=== PATIENT | female | born 1970 | race Caucasian/White ===

== ENCOUNTER 2017-10-05 14:55 | Emergency (ER) | payer BC ==
[2017-10-05 15:16] VITALS: BP 129/72
--- NOTE | 2017-10-05 15:57 | RAD ---
HISTORY: Chest congestion COMPARISONS: January 05, 2012 VIEWS: 4: Frontal dual-energy and lateral views of the chest. FINDINGS: CARDIOMEDIASTINAL SILHOUETTE: The cardiomediastinal silhouette is normal. GRZEGORZ: The grzegorz are normal. PLEURA: The costophrenic angles are sharp. No pleural abnormalities are noted. LUNG PARENCHYMA: The lungs are clear. ABDOMEN: The upper abdomen is clear. There is no subphrenic gas. BONES AND SOFT TISSUES: Degenerative changes are noted of the spine OTHER: None. IMPRESSION: NO ACTIVE CARDIOPULMONARY DISEASE.
--- NOTE | 2017-10-05 16:47 | UC ---
Respiratory Complaint HPI - HPI Summary HPI Summary: Patient is a 47-year-old female presenting to the with chief complaint of "I feel like I have pneumonia." She states she feels very heavy and her chest, constantly coughing and is unable to bring anything up with the cough. Endorses green and yellow discharge 2, but thinks it may be too thick to be coughed out. Denies any fevers, sweats, chills. She also endorses stating "I had the flu last week," but was never tested. She states she had diffuse body aches and was feeling warm at that time. She took 1 Advil and started to feel better. She called the ED who told her not to come in as it had already been 48 hours of present symptoms. She endorses one episode of pneumonia years ago and states this feels similar. She does not feel more short of breath or fatigued than usual. History of asthma at baseline. She states she has not needed the use of her inhaler more frequently lately. - History of Current Complaint Chief Complaint: UCRespiratory Stated Complaint: CHEST CONGESTION Time Seen by Provider: 10/05/17 15:21 Hx Obtained From: Patient ?: No Onset/Duration: Sudden Onset Timing: Constant Severity Initially: Mild Severity Currently: Mild Pain Intensity: 0 Pain Scale Used: 0-10 Numeric Character: Cough: Nonproductive Aggravating Factors: Nothing Alleviating Factors: Nothing Associated Signs And Symptoms: Positive: URI, Nasal Congestion - Risk Factors Pulmonary Embolism Risk Factors: Negative Cardiac Risk Factors: Negative Pseudomonas Risk Factors: Negative Tuberculosis Risk Factors: Negative - Allergies/Home Medications Allergies/Adverse Reactions: Allergies Allergy/AdvReac Type Severity Reaction Status Date / Time Iodinated Contrast- Oral and Allergy Hives Verified 10/05/17 15:22 IV Dye Penicillins Allergy Hives Verified 10/05/17 15:22 PMH/Surg Hx/FS Hx/Imm Hx Previously Healthy: Yes - Surgical History Surgical History: Yes Surgery Procedure, Year, and Place: hysterectomy r/t tumor removal, GASTRIC BYPASS X10YRS AGO, LT ANKLE FX, RT KNEE X2, L/R SKIN GRAFT, BILATERAL CARPAL TUNNEL, CHOLECYSTECTOMY, UMBILICAL HERNIA X 7, TUBLA LIGATION - Family History Known Family History: Positive: Unknown - Social History Occupation: Employed Full-time Lives: With Family Alcohol Use: None Substance Use Type: None Smoking Status (MU): Former Smoker Review of Systems Constitutional: Negative Skin: Negative ENT: Sinus Congestion, Sinus Pain/Tenderness Respiratory: Cough Cardiovascular: Negative Motor: Negative Neurovascular: Negative Neurological: Negative Psychological: Negative Is Patient Immunocompromised?: No All Other Systems Reviewed And Are Negative: Yes Physical Exam Triage Information Reviewed: Yes Appearance: Well-Appearing, Well-Nourished Vital Signs: Initial Vital Signs Temp 97.8 F 10/05/17 15:08 Pulse 75 10/05/17 15:08 Resp 18 10/05/17 15:08 BP 129/72 10/05/17 15:08 Pulse Ox 98 10/05/17 15:08 Vital Signs Reviewed: Yes Eye Exam: Normal Eyes: Positive: Conjunctiva Clear Neck exam: Normal Neck: Positive: Supple, No Lymphadenopathy Respiratory Exam: Normal Respiratory: Positive: Wheezing Cardiovascular Exam: Normal Cardiovascular: Positive: RRR Musculoskeletal Exam: Normal Musculoskeletal: Positive: Strength Intact Neurological Exam: Normal Neurological: Positive: Alert Psychological: Positive: Normal Response To Family Skin Exam: Normal UC Diagnostic Evaluation - Laboratory O2 Sat by Pulse Oximetry: 98 Respiratory Course/Dx - Course Course Of Treatment: During the course of treatment, the patient is evaluated for chest pressure with mild cough without the ability to bring any mucus up 4 days. She states she has had a history of pneumonia and states this feels similar. Denies any recent fevers, sweats, chills, however she endorses flulike symptoms last week but was never tested. No pain to palpation of the maxillary sinuses, slight wheezing in the bilateral lung bases, without rhonchi. X-ray ordered. I have also offered a cough suppressant while in the UC and she declines. While awaiting the results of the chest x-ray, patient eloped. - Differential Dx/Diagnosis Provider Diagnoses: Patient eloped Discharge - Sign-Out/Discharge Documenting (check all that apply): Discharge - Discharge Plan Condition: Stable Disposition: ELOPEMENT Referrals: Justin MCKEON,Naun Vaughan [Primary Care Provider] - - Billing Disposition and Condition Condition: STABLE Disposition: ELOP
== END 2017-10-05 16:11 | disposition left against medical advice (07) ==
LOC: UCEAST 14:55
DX: R05 Cough (principal); R09.89 Other specified symptoms and signs involving the circulatory and respiratory systems; R09.81 Nasal congestion; Z88.0 Allergy status to penicillin; Z91.041 Radiographic dye allergy status; Z87.891 Personal history of nicotine dependence
CPT/HCPCS: 71046; 99212; G0463

== ENCOUNTER 2018-11-03 12:02 | Emergency (ER) | payer BC, MEDICAID ==
[2018-11-03] MEDS ORDERED: NS 0.9% 1000 ML** 2,000 ML IV ONE (12:36)
--- NOTE | 2018-11-03 12:37 | ED ---
HPI Chest Pain - HPI Summary HPI Summary: This patient is a 48 year old female presenting to [facility] with a chief complaint of chest tightness since last night. One week ago she noticed green drainage in her eyes bilaterally. She reports neck pain, chills, diaphoresis, photophobia throat tightness and nasal congestion with green mucous. She states that she has been around family members that have had the flu and strep throat. Patient is wearing sunglasses because the light bothers her. The patient has a Hx of asthma but denies dyspnea or wheezing now. The patient used clear eye drops last night. The patient states she lost her voice for three days in the last week but it has returned now. Vital signs in the room at 1236 are BP of 113/70 , HR of 91 BPM and an O2 Sat of 99%. Pt states she took a cetirizine last pm for allergy symptoms but normally does not take medications. NK [No Home Medications Reported] 02/28/13 [History Confirmed 10/05/17] - History of Current Complaint Chief Complaint: EDGeneral Hx Obtained From: Patient Onset/Duration: Started Days Ago, Started Weeks Ago, Still Present Initial Severity: Mild Current Severity: None Pain Intensity: 0 Pain Scale Used: 0-10 Numeric Chest Pain Radiates: Yes Chest Pain Radiates To:: Neck Character: Heaviness Associated Signs and Symptoms: Positive: Chest Pain, Chills, Diaphoresis, Nasal Congestion. Negative: Shortness of Breath - Allergy/Home Medications Allergies/Adverse Reactions: Allergies Allergy/AdvReac Type Severity Reaction Status Date / Time Iodinated Contrast- Oral and Allergy Hives Verified 11/03/18 12:10 IV Dye Penicillins Allergy Hives Verified 11/03/18 12:10 PMH/Surg Hx/FS Hx/Imm Hx Endocrine/Hematology History: Denies: Hx Diabetes, Hx Systemic Lupus Erythematosus, Hx Thyroid Disease Cardiovascular History: Denies: Hx Congestive Heart Failure, Hx Hypertension Respiratory History: Reports: Hx Asthma Denies: Hx Chronic Obstructive Pulmonary Disease (COPD), Other Respiratory Problems/Disorders GI History: Denies: Hx Ulcer History: Denies: Hx Dialysis, Hx Renal Disease Musculoskeletal History: Reports: Hx Osteoporosis EENT History: 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 - Surgical History Surgery Procedure, Year, and Place: hysterectomy r/t tumor removal, GASTRIC BYPASS X10YRS AGO, LT ANKLE FX, RT KNEE X2, L/R SKIN GRAFT, BILATERAL CARPAL TUNNEL, CHOLECYSTECTOMY, UMBILICAL HERNIA X 7, TUBLA LIGATION Infectious Disease History: No Infectious Disease History: Denies: Hx Clostridium Difficile, Hx Hepatitis, Hx Human Immunodeficiency Virus (HIV), Hx of Known/Suspected MRSA, Traveled Outside the [place] in Last 30 Days - Family History Known Family History: Positive: Cardiac Disease, Diabetes, Renal Disease - Social History Alcohol Use: None Substance Use Type: Reports: None Hx Tobacco Use: No Smoking Status (MU): Former Smoker Review of Systems Positive: Chills, Skin Diaphoresis Positive: Photophobia, Drainage Positive: Sore Throat, Nasal Discharge Positive: Chest Pain Negative: Shortness Of Breath Positive: Other - Neck pain All Other Systems Reviewed And Are Negative: Yes Physical Exam - Summary Physical Exam Summary: Appearance: well-appearing, moderate pain distress, well-nourished, wearing sunglasses Skin: Warm, color reflects adequate perfusion, dry Head: Normal Head/Face inspection, atraumatic Eyes: Conjunctiva red, injected, exudate in left eye, photophobic ENT: Normal inspection Neck: Supple, no nodes, no JVD Respiratory: Lungs clear, normal breath sounds, no respiratory distress, no wheezing Cardio: RRR, No murmur, pulses normal, brisk capillary refill Abdomen: Soft, nontender Bowel sounds: Present Musculoskeletal: Strength Intact/ROM intact, no calf tenderness, no edema. Psychological: Normal Neuro: Alert, muscle tone normal, no focal deficit Triage Information Reviewed: Yes Vital Signs On Initial Exam: Initial Vitals Temp Pulse Resp BP Pulse Ox 99.3 F 81 16 118/67 99 11/03/18 12:05 11/03/18 12:05 11/03/18 12:05 11/03/18 12:05 11/03/18 12:05 Vital Signs Reviewed: Yes Diagnostics - Vital Signs Vital Signs Temp Pulse Resp BP Pulse Ox 11/03/18 12:05 99.3 F 81 16 118/67 99 - Laboratory Result Diagrams: 11/03/18 12:54 11/03/18 12:54 Lab Statement: Any lab studies that have been ordered have been reviewed, and results considered in the medical decision making process. - Radiology CXR Radiology Interpretation Completed By: Radiologist Summary of Radiographic Findings: Reveals no evidence for acute disease. ED Provider has reviewed this report. - EKG 1314 Cardiac Rate: NL - 60 BPM EKG Rhythm: Sinus Rhythm ST Segment: Non-Specific Ectopy: None EKG Comparison: No Significant Change - 10/27/07 Summary of EKG Findings: An EKG at 1314 reveals nml AV/IV CT, nml QTc, and nml axis. No acute changes. Re-Evaluation - Re-Evaluation First Eval Re-Evaluation Time: 14:00 Change: Improved Comment: Vision improved but still photophobic. Still with chest pressure 3-4. Discussed dye allergy. States she is not sure if it was IV or oral. It was "a long time ago". States she had "two hives", "one on each cheek", no SOB, no throat tightening, no total body urticaria. Will order tobramycin eye drops for possible bacterial conjunctivitis Second Eval Re-Evaluation Time: 17:00 Change: Improved Comment: Chest pain is better, eyes are better, agrees to discharge plan, agrees to take antihistamines. BP was 116/72, Heart Rate of 55, spO2 of 98%. Chest Pain Course/Dx - Course Course Of Treatment: This patient is a 48 year old female presenting to [facility] with a chief complaint of chest tightness since last night. Labs reveal Hgb 11.3 L, MPV 7.3 L, D-Dimer 328 H, Glucose 106 H, Alkaline Phosphatase 108 H. An EKG at 1314 reveals nml AV/IV CT, nml QTc, and nml axis. No acute changes. CXR reveals no evidence for acute disease. A plan for discharge was discussed with the patient and she was agreeable with this plan. Considered pt's d-dimer which is mildly elevated. Pt deemed to be low risk by [facility]. Did take a trip to [place] yest, but got out and walked around mid-trip. No leg pain. No SOB. No tachypnea, no tachycardia. Possible allergy to IV contrast. Will treat pt's chest pressure as allergic related as the rest of her constellation of symptoms fits allergies. Will defer CTA at this point. Serology reveals Influenza A- Negative, Influenza B-Negative, Strep A- Negative. A plan for discharge was discussed with the patient and she was agreeable with this plan. - Chest Pain Differential Diagnosis/HQI/PQRI: Acute DC, ACS, Chest Wall, GI Disease, Lower Respiratory Infection, Pulmonary Embolism - Diagnoses Provider Diagnoses: Chest tightness or pressure, Conjunctivitis Discharge - Sign-Out/Discharge Documenting (check all that apply): Patient Departure - Discharge Patient Received Moderate/Deep Sedation with Procedure: No - Discharge Plan Condition: Stable Disposition: HOME Patient Education Materials: Chest Pain (ED) Referrals: Justin MCKEON,Naun Vaughan [Primary Care Provider] - - Attestation Statements Document Initiated by Scribe: Yes Documenting Scribe: Jakub Jerez Provider For Whom Jennifere is Documenting (Include Credential): Corazon Iglesias Scribe Attestation: Jakub Samuels, scribed for Corazon Iglesias on 11/03/18 at 1854. Status of Scribe Document: Ready
[2018-11-03 13:01] LABS: ABS Basophils 0.1 10^3/ul (0-0.2); ABS Eosinophils 0.2 10^3/ul (0-0.6); ABS Lymphocytes 1.6 10^3/ul (1.0-4.8); ABS Monocytes 0.6 10^3/ul (0-0.8); ABS Neutrophils 4.1 10^3/ul (1.5-7.7); Eosinophil % 3.4 %; Hematocrit 35 % (35-47); Hemoglobin 11.3 g/dL (12.0-16.0); Lymphocyte % 24.4 %; Mean Corpuscular HGB Conc 32 g/dL (31-36); Mean Corpuscular Hemoglobin 27 pg (27-31); Mean Corpuscular Volume 82 fL (80-97); Mean Platelet Volume 7.3 fL (7.4-10.4); Platelet Count 352 10^3/uL (150-450); Red Blood Count 4.27 10^6 /uL (3.70-4.87); Red Cell Distribution Width 15 % (10.5-15); White Blood Count 6.6 10^3/uL (3.5-10.8)
[2018-11-03 13:08] LABS: Activated Partial Thrombo Time 32.7 seconds (26.0-36.3); INR 1.03 (0.82-1.09)
[2018-11-03 13:19] LABS: Albumin/Globulin Ratio 1.1 (1-3); BUN/Creatinine Ratio 17.6 (8-20); Calcium 9.4 mg/dL (8.6-10.3); EGFR African American 100.5 (>60); EGFR Non-African American 83.1 (>60); Globulin 3.6 g/dL (2-4); Magnesium 2.1 mg/dL (1.9-2.7); Potassium 3.5 mmol/L (3.5-5.0); Total Bilirubin 0.6 mg/dL (0.2-1.0); Total Protein 7.6 g/dL (6.4-8.9)
[2018-11-03 13:21] LABS: Troponin I 0.01 ng/mL (<0.04)
[2018-11-03 13:23] LABS: CKMB ng/mL 1.1 ng/mL (0.6-6.3)
[2018-11-03] MEDS ORDERED: diPHENhydraMINE IV* 50 MG/ML 1 ml VIAL (BENADRYL) IV ONE (14:02)
[2018-11-03] MEDS ORDERED: methylPREDNISolone 125 MG* 2 ML VIAL IV ONE (14:02)
[2018-11-03] MEDS ORDERED: Tobramycin 0.3% OPHTH.SOL* 5 ML BOT (regular eye drops) BOTH EYES ONE (14:12)
[2018-11-03 14:14] LABS: TSH (Thyroid Stimulating Horm) 3.52 mcIU/mL (0.34-5.60)
[2018-11-03 14:53] LABS: Urine Appearance Clear; Urine Bilirubin Negative (Negative); Urine Blood Negative (Negative); Urine Color Straw; Urine Glucose Negative (Negative); Urine Ketones Negative (Negative); Urine Nitrite Negative (Negative); Urine Protein Negative (Negative); Urine Specific Gravity 1.004 (1.010-1.030); Urine Urobilinogen Negative (Negative)
[2018-11-03 15:06] LABS: Influenza A Molecular NEGATIVE (Negative); Influenza B Molecular NEGATIVE (Negative)
[2018-11-03 17:28] VITALS: BP 124/74
[2018-11-05 07:56] LABS: Rapid Strep Molecular Negative (Negative)
== END 2018-11-03 16:56 | disposition home or self-care (01) ==
LOC: ED 12:02
DX: R07.9 Chest pain, unspecified (principal); H10.9 Unspecified conjunctivitis; M81.0 Age-related osteoporosis without current pathological fracture; R06.02 Shortness of breath; Z88.0 Allergy status to penicillin; Z91.041 Radiographic dye allergy status; Z98.84 Bariatric surgery status; Z87.891 Personal history of nicotine dependence
CPT/HCPCS: 36415; 71045; 80053; 81003; 82550; 82553; 83605; 83735; 83880; 84443; 84484; 85025; 85379; 85610; 85730; 87651; 93005; 96374; 96375; 99283; A9270-GY; J1200; J2930

== ENCOUNTER 2018-12-24 10:00 | Emergency (ER) | payer SELFPAY ==
[2018-12-24] MEDS ORDERED: Ibuprofen TAB* 800 MG PO ONE (13:21)
--- NOTE | 2018-12-24 13:22 | ED ---
Back Pain - HPI Summary HPI Summary: Pt. is a 48 y.o female who presents to the ER for diffuse back pain x 2-3 days. Pt. states she has a hx of back pain from remote injuries. No surgeries. Pt. does not recall any injuries of falls but states she did lift a case of water recently. Pt. states pain is diffuse through spine and goes into bilateral legs. She denies leg numbness, tingling or weakness. Denies bowel or bladder incontinence or retention. Pt. also notes chills today and has low grade fever in ED. Pt. denies past medical hx. Denies IV drug use. Denies cough, cp, sob, abd. pain, V/D, urinary sxs, rash. Sxs are moderate in severity. Movement makes sxs worse. Nothing makes sxs better. Pt. has not taken any OTC analgesics. - History of Current Complaint Chief Complaint: EDBackInjuryPain Stated Complaint: PARALYSIS SYMPTOMS PER PT Time Seen by Provider: 12/24/18 13:09 Hx Obtained From: Patient Pain Intensity: 10 - Allergies/Home Medications Allergies/Adverse Reactions: Allergies Allergy/AdvReac Type Severity Reaction Status Date / Time Penicillins Allergy Unknown Verified 12/24/18 10:08 Reaction Details PMH/Surg Hx/FS Hx/Imm Hx Previously Healthy: Yes Respiratory History: Reports: Hx Asthma Infectious Disease History: No Infectious Disease History: Denies: Traveled Outside the [place] in Last 30 Days - Family History Known Family History: Positive: Non-Contributory - Social History Occupation: Unemployed Lives: Alone Alcohol Use: None Substance Use Type: Reports: None Smoking Status (MU): Never Smoked Tobacco Review of Systems Positive: Fever, Chills Eyes: Negative ENT: Negative Cardiovascular: Negative Negative: Palpitations, Chest Pain Respiratory: Negative Negative: Shortness Of Breath, Cough Gastrointestinal: Negative Negative: Abdominal Pain, Vomiting, Diarrhea Genitourinary: Negative Negative: dysuria Positive: Other - diffuse back pain Skin: Negative Negative: Rash Neurological: Negative Positive: Headache. Negative: Weakness, Paresthesia, Numbness, Syncope All Other Systems Reviewed And Are Negative: Yes Physical Exam Triage Information Reviewed: Yes Vital Signs On Initial Exam: Initial Vitals Temp Pulse Resp BP Pulse Ox 100.0 F 103 16 143/80 96 12/24/18 10:05 12/24/18 10:05 12/24/18 10:05 12/24/18 10:05 12/24/18 10:05 Vital Signs Reviewed: Yes Appearance: Positive: Pain Distress - Pt. lying in room with lights off. Appears uncomfortable but nontoxic. Skin: Positive: Warm, Dry Head/Face: Positive: Normal Head/Face Inspection Eyes: Positive: Normal, EOMI Neck: Positive: Supple. Negative: Nuchal Rigidity Respiratory/Lung Sounds: Positive: Clear to Auscultation, Breath Sounds Present Cardiovascular: Positive: Normal, RRR Abdomen Description: Positive: Other: - Abd. is soft with mild tenderness to suprapubic pain which pt. states his chronic. Musculoskeletal: Positive: Normal, Strength/ROM Intact, Other - 5/5 strength in bilateral LEs. Diffuse midline spinal tenderness. No CVA tenderness. Neurological: Positive: Normal, CN Intact II-III Psychiatric: Positive: Affect/Mood Appropriate Diagnostics - Vital Signs Vital Signs Temp Pulse Resp BP Pulse Ox 12/24/18 10:05 100.0 F 103 16 143/80 96 - Laboratory Result Diagrams: 12/24/18 13:28 12/24/18 13:28 Lab Statement: Any lab studies that have been ordered have been reviewed, and results considered in the medical decision making process. Back Pain Course/Dx - Course Course Of Treatment: Pt. presenting for diffuse back pain. She also notes chills and has a low grade fever in the ED and is mildly tachycardic. Pt. has no neuro deficits and no evidence of cauda equina syndrome. Discussed pain control options and states she only wants ibuprofen, 800mg ordered. Will check labs and u/a. Pt. agreeable with plan. Labs are unremarkable other than minimally elevated CRP, alk phose, bilirubin, AST. Pending U/A. 1512: Pt.'s nurse states that pt. is upset that we are not doing anything for her. Pt. states she would like tylenol. Pt. now up out of bed and walking without difficulty. Pt. requesting to leave ER. I spoke with pt. and she asked me to leave room so she could change and leave. Pt. ambulating without difficulty. Attempted to discuss labs but was dismissed from room. Pt. leaving AMA. - Diagnoses Differential Diagnosis/HQI/PQRI: Positive: Arthritis, Epidural Abscess, Herniated Disc, Osteomyelitis, Renal Colic, Strain, Sprain Provider Diagnoses: Back pain, Fever Discharge - Sign-Out/Discharge Documenting (check all that apply): Patient Departure Patient Received Moderate/Deep Sedation with Procedure: No - Discharge Plan Condition: Good Disposition: AGAINST MEDICAL ADVICE Referrals: Justin MCKEON,Naun Vaughan [Primary Care Provider] - - Billing Disposition and Condition Condition: GOOD Disposition: Against Medical Advice
[2018-12-24 13:49] LABS: ABS Lymphocytes 0.3 10^3/ul (1.0-4.8); ABS Monocytes 0.5 10^3/ul (0-0.8); ABS Neutrophils 3.9 10^3/ul (1.5-7.7); Eosinophil % 0.2 %; Hematocrit 36 % (35-47); Hemoglobin 11.9 g/dL (12.0-16.0); Lymphocyte % 7.4 %; Mean Corpuscular HGB Conc 33 g/dL (31-36); Mean Corpuscular Hemoglobin 27 pg (27-31); Mean Corpuscular Volume 81 fL (80-97); Mean Platelet Volume 7.8 fL (7.4-10.4); Platelet Count 265 10^3/uL (150-450); Red Blood Count 4.44 10^6 /uL (3.70-4.87); Red Cell Distribution Width 15 % (10-15); White Blood Count 4.7 10^3/uL (3.5-10.8)
[2018-12-24 14:04] LABS: Albumin 3.9 g/dL (3.2-5.2); Albumin/Globulin Ratio 1.1 (1-3); BUN/Creatinine Ratio 14.5 (8-20); C Reactive Protein 32.61 mg/L (<8.01); Calcium 9.3 mg/dL (8.6-10.3); EGFR Non-African American 90.1 (>60); Globulin 3.4 g/dL (2-4); Potassium 3.7 mmol/L (3.5-5.0); Total Bilirubin 1.3 mg/dL (0.2-1.0); Total Protein 7.3 g/dL (6.4-8.9)
[2018-12-24 14:17] VITALS: BP 131/86
[2018-12-24] MEDS ORDERED: Acetaminophen TAB* 325 MG PO ONE (15:06)
[2018-12-24 15:34] LABS: Urine Appearance Clear; Urine Bilirubin Negative (Negative); Urine Blood Negative (Negative); Urine Color Straw; Urine Glucose Negative (Negative); Urine Ketones 1+ (Negative); Urine Nitrite Negative (Negative); Urine Protein Negative (Negative); Urine Specific Gravity 1.006 (1.010-1.030); Urine Urobilinogen Negative (Negative)
== END 2018-12-24 15:56 | disposition left against medical advice (07) ==
LOC: MERGE 10:00 → ED 10:00
DX: M54.9 Dorsalgia, unspecified (principal); R50.9 Fever, unspecified; Z88.0 Allergy status to penicillin; R51 Headache
CPT/HCPCS: 36415; 80053; 81003; 85025; 86140; 87476; 87798; 99282; A9270-GY